=== PATIENT | female | born 1935 | race Caucasian/White ===

== ENCOUNTER 2017-06-23 16:59 | Inpatient (IN) | payer MEDICARE ==
[2017-06-23] VITALS (7 sets, daily range): BP systolic 111–160
[~2017-06-23] VITALS: Ht 154.9 cm; Wt 67.1 kg
[~2017-06-23 16:59] MED LIST: ATEN-41; CLOP75TA2; LETR2.5T3; LOSA25TA3; NAPH,MB-DB/K PH,MBDB 250 MG TAB PO ONE; OMEP20TA56; SIMV10TA6
--- NOTE | 2017-06-23 16:59 | NUR ---
Pt placed in bed 4 by [facility]
--- NOTE | 2017-06-23 17:02 | NUR ---
Pt BIB BLS c/o gradual onset 10/ L hip pain since April. Pt states she has been increasingly weak and has not been able to sleep comfortably in bed, so pt has been sleeping in an arm chair; states it was too painful to stand up from chair. Pt unable to lift L leg without pain, cap refill <3, + sensation to bilateral lower extremities. No other injuries/complaints per pt/noted. Will continue to monitor.
--- NOTE | 2017-06-23 17:18 | NUR ---
ER Dr. Mullins at bedside examining patient.
[2017-06-23] MEDS ORDERED: DILTIAZEM HCL 25 MG/5 ML VIAL IVP ONE ×4 (17:30→18:30)
[2017-06-23] MEDS ORDERED: MORPHINE 4 MG/ML INJ. SYRINGE IVP ONE (17:30)
[2017-06-23] MEDS ORDERED: ASPIRIN 81 MG TAB.CHEW PO ONE (17:30)
--- NOTE | 2017-06-23 17:40 | NUR ---
Medication administered. Pt tolerated well. No adverse reactions noted.
--- NOTE | 2017-06-23 17:42 | NUR ---
Radiology at bedside
[2017-06-23 17:47] LABS: MEAN CORPUSCULAR HEMOGLOBIN 33 pg (27-31); MEAN CORPUSCULAR HGB CONC 34 % (32-36)
--- NOTE | 2017-06-23 17:57 | NUR ---
Medication administered. Pt tolerated well.
--- NOTE | 2017-06-23 18:09 | NUR ---
Medication administered. Pt tolerated well. Kenji left to corn picker list of medications. Would like to be notified of any changes to pt's condition
--- NOTE | 2017-06-23 18:10 | NUR ---
Laboratory at bedside
--- NOTE | 2017-06-23 18:13 | NUR ---
Pt moved to bed 2
[2017-06-23 18:26] LABS: MEAN CORPUSCULAR VOLUME 96 fL (79.0-98.0); MONOCYTES # (AUTO) 1.1 K/uL (0.0-1.0)
[2017-06-23 18:30] LABS: BASOPHILS # (AUTO) 0.6 K/uL (0.0-0.2); BASOPHILS % (AUTO) 2.7 % (0.0-2.0); HEMATOCRIT 41.7 % (36-48); HEMOGLOBIN 14.2 g/dL (12.0-16.0); LYMPHOCYTES # (AUTO) 3.5 K/uL (1.0-5.5); LYMPHOCYTES % (AUTO) 17.1 % (20.5-51.5); MONOCYTES % (AUTO) 5.5 % (1.7-9.3); NEUTROPHILS # (AUTO) 15.5 K/uL (1.8-7.7); NEUTROPHILS % (AUTO) 74.7 % (40.0-70.0); PLATELET COUNT (AUTO) 196 K/uL (130-430); RED BLOOD CELL COUNT(AUTO) 4.36 MIL/uL (4.2-6.2); RED CELL DISTRIBUTION WIDTH 12.8 % (9.0-15.0); WHITE BLOOD COUNT (AUTO) 20.7 K/uL (4.8-10.8)
[2017-06-23 18:43] LABS: INR 1.1 (0.8-1.2); PROTHROMBIN TIME 10.8 SECS (9.5-12.5)
[2017-06-23 18:44] LABS: ANION GAP 15 (5-15); CALCIUM 9.2 mg/dL (8.4-11.0); CHLORIDE 96 mmol/L (98-107); CREATININE 1.17 mg/dL (0.55-1.30); GLUCOSE 135 mg/dL (70-99); POTASSIUM 3.9 mmol/L (3.5-5.1); SODIUM SERUM 132 mmol/L (136-145); UREA NITROGEN, BLOOD 20 mg/dL (8-21)
[2017-06-23] MEDS ORDERED: DILTIAZEM HCL 125 MG/25 ML VIAL IV ONE (18:45)
[2017-06-23] MEDS ORDERED: cefTRIAXone 1 GM in D5W 50 ML IV ONE (18:45)
[2017-06-23] MEDS ORDERED: DILTIAZEM HCL 125 MG in D5W 100 ML IV ONE (18:45)
[2017-06-23 18:49] LABS: ALANINE AMINOTRANSFERASE 21 U/L (12-78); ALBUMIN 3.9 g/dL (3.4-4.8); ASPARTATE AMINOTRANSFERASE 22 U/L (10-37); TOTAL BILIRUBIN 1.3 mg/dL (0.0-1.0)
[2017-06-23 19:05] LABS: BILIRUBIN,URINE 1+ (NEGATIVE); BLOOD, URINE TRACE (NEGATIVE); CLARITY/URINE CLEAR (CLEAR); COLOR,URINE YELLOW (YELLOW); GLUCOSE,URINE NEGATIVE (NEGATIVE); KETONES,URINE TRACE (NEGATIVE); LEUKOCYTE ESTERASE ,URINE NEGATIVE (NEGATIVE); NITRITE, URINE NEGATIVE (NEGATIVE); PH,URINE 5.5 (5.0-8.0); PROTEIN URINE 2+ (NEGATIVE); UROBILINOGEN,URINE 0.2 (0.2-1.0)
[2017-06-23 19:17] LABS: BACTERIA,URINE FEW /HPF (None Seen); MUCUS,URINE 1+ /LPF (None Seen); RBC,URINE 0-3 /HPF (0-3)
--- NOTE | 2017-06-23 19:22 | NUR ---
Cardizem titrated up to 10mg/hr,HR 172
[2017-06-23] MEDS ORDERED: cefTRIAXone 1 GM VIAL ONE (19:24)
--- NOTE | 2017-06-23 19:40 | NUR ---
Patient will be admitted to [facility]. Admitted to ICU. Will go to room 1. Summary report printed. Report will be given at bedside.
[2017-06-23] MEDS ORDERED: ERGO500043 PO (20:06)
[2017-06-23] MEDS ORDERED: METO-442 PO (20:15)
[2017-06-23] MEDS ORDERED: VIT1CAPS27 PO (20:15)
[2017-06-23] MEDS ORDERED: ASPI-1077 PO (20:15)
[2017-06-23] MEDS ORDERED: LOSA50TA3 PO (20:21)
[2017-06-23] MEDS ORDERED: LEVO25TA7 PO (20:21)
[2017-06-23] MEDS ORDERED: SIMV20TA2 PO (20:21)
[2017-06-23] MEDS ORDERED: HYDR-1189 PO (20:21)
[2017-06-23] MEDS ORDERED: ONDANSETRON HCL 4 MG/2 ML VIAL IVP PRN (20:45)
[2017-06-23] MEDS ORDERED: ACETAMINOPHEN 325 MG TABLET PO PRN (20:45)
[2017-06-23] MEDS ORDERED: MAGNESIUM SULFATE 50 ML IV PRN (20:45)
[2017-06-23] MEDS ORDERED: DOCUSATE SODIUM 100 MG CAPSULE PO PRN (20:45)
[2017-06-23] MEDS ORDERED: POTASSIUM CHLORIDE 20 MEQ TAB.PRT.SR PO PRN (20:45)
[2017-06-23] MEDS ORDERED: ZOLPIDEM TARTRATE 5 MG TABLET PO PRN (20:45)
[2017-06-23] MEDS ORDERED: LORazepam 2 MG/ML VIAL IVP PRN (20:45)
[2017-06-23] MEDS ORDERED: MORPHINE 4 MG/ML INJ. SYRINGE IVP PRN ×2 (20:45)
[2017-06-23] MEDS ORDERED: MUPIROCIN 2% TOPICAL OINTMENT 22 GM NS PRN (20:45)
[2017-06-23] MEDS ORDERED: NACL 0.9% 1,000 ML IV ONE ×2 (21:00→22:00)
[2017-06-23] MEDS: ENOXAPARIN SODIUM 60 MG/0.6 ML SYRINGE SUBCUT SCH (21:00)
--- NOTE | 2017-06-23 21:45 | NUR ---
PAGE CALLED FOR DR. BROOKE. SPOKE TO DR. BROOKE, DIALED [phone].
--- NOTE | 2017-06-23 21:47 | NUR ---
CONSULTATION CALLED REASON FOR CONSULT: SEPSIS WAS CONSULT CALLED? Y PERSON NOTIFIED: MAIA PHYSICIAN CONSULTED: EMMETT SEPULVEDA PHYSICIAN NUMBER: [phone] PHYSICIAN SPECIALTY: INFECTIOUS DISEASE ORDERING PHYSICIAN: DR. BROOKE [facility]
[2017-06-23] MEDS: METOPROLOL TARTRATE 50 MG TABLET PO SCH (21:52)
[2017-06-23] MEDS: AMIODARONE HCL 200 MG TABLET PO SCH (21:53)
[2017-06-23] MEDS ORDERED: cefTRIAXone 1 GM IVPB PREMIX 50 ML IV ONE (22:25)
[2017-06-23] MEDS: NACL 0.9% 1,000 ML IV SCH (22:26)
--- NOTE | 2017-06-23 22:34 | NUR ---
HEART RATE CONVERSION OBSERVED RHYTHM CONVERSION TO SINUS RHYTHM WITH PAC'S ON PRIVATE DUTY NURSE, CURRENTLY RATE OF 77
[2017-06-23] MEDS ORDERED: KCL 40 mEq in 100 mL (PREMIX) 100 ML IV ONE (23:45)
[2017-06-23] MEDS ORDERED: NAPH,MB-DB/K PH,MBDB 250 MG TAB PO ONE (23:45)
[2017-06-24] VITALS (24 sets, daily range): BP systolic 95–164
--- NOTE | 2017-06-24 01:53 | NUR ---
LEG DRESSINGS REMOVED COMPRESSION DRESSINGS PLACED BY JARVIS MERCER ON TUESDAY 06/20 REMOVED FOR SKIN INSPECTION. NO SIGNIFICANT WOUNDS NOTED, LEGS APPEAR DRY AND FLAKY.
[2017-06-24] MEDS ORDERED: VANCOMYCIN HCL 1 GM/NS PREMIX 250 ML IV SCH (03:30)
[2017-06-24] MEDS: AMIODARONE HCL 200 MG TABLET PO SCH ×2 (05:13→20:56)
[2017-06-24] MEDS ORDERED: DILTIAZEM HCL 125 MG in D5W 100 ML IV SCH (05:30)
[2017-06-24] MEDS ORDERED: DILTIAZEM HCL 25 MG/5 ML VIAL ONE (06:00)
[2017-06-24] MEDS: NACL 0.9% 1,000 ML IV SCH ×3 (06:10→23:44)
[2017-06-24 06:56] LABS: BASOPHILS # (AUTO) 0.8 K/uL (0.0-0.2); BASOPHILS % (AUTO) 3.9 % (0.0-2.0); HEMATOCRIT 33.6 % (36-48); HEMOGLOBIN 11.7 g/dL (12.0-16.0); LYMPHOCYTES # (AUTO) 4.8 K/uL (1.0-5.5); LYMPHOCYTES % (AUTO) 22.3 % (20.5-51.5); MEAN CORPUSCULAR HEMOGLOBIN 34 pg (27-31); MEAN CORPUSCULAR HGB CONC 35 % (32-36); MEAN CORPUSCULAR VOLUME 97 fL (79.0-98.0); MONOCYTES # (AUTO) 1.7 K/uL (0.0-1.0); NEUTROPHILS # (AUTO) 14.2 K/uL (1.8-7.7); NEUTROPHILS % (AUTO) 65.8 % (40.0-70.0); PLATELET COUNT (AUTO) 150 K/uL (130-430); RED BLOOD CELL COUNT(AUTO) 3.48 MIL/uL (4.2-6.2); RED CELL DISTRIBUTION WIDTH 12.8 % (9.0-15.0); WHITE BLOOD COUNT (AUTO) 21.5 K/uL (4.8-10.8)
--- NOTE | 2017-06-24 07:20 | NUR ---
CLOSING NOTE PT IN BED, RESTING. NO SIGNS OF DISTRESS, DENIES CURRENT PAIN OR DISCOMFORT. CARDIAC RHYTHM REMAINS STABLE SINUS RHYTHM. CARE TO RESUME THROUGH SHIFT.
[2017-06-24 07:21] LABS: ANION GAP 11 (5-15); CALCIUM 7.8 mg/dL (8.4-11.0); CHLORIDE 101 mmol/L (98-107); GLUCOSE 124 mg/dL (70-99); POTASSIUM 4.1 mmol/L (3.5-5.1); SODIUM SERUM 131 mmol/L (136-145); UREA NITROGEN, BLOOD 26 mg/dL (8-21)
[2017-06-24 07:22] LABS: ALANINE AMINOTRANSFERASE 14 U/L (12-78); ALBUMIN 2.6 g/dL (3.4-4.8); ASPARTATE AMINOTRANSFERASE 19 U/L (10-37); CHOLESTEROL 79 mg/dL (<200); CREATININE 0.89 mg/dL (0.55-1.30); TOTAL BILIRUBIN 1.1 mg/dL (0.0-1.0); TRIGLYCERIDES 46 mg/dL (30-150)
[2017-06-24 07:23] LABS: HDL CHOLESTEROL 61 mg/dL (>55); LDL CHOLESTEROL < 6 mg/dL (<100); THYROID STIMULATING HORMONE 0.37 uIu/mL (0.34-4.82)
--- NOTE | 2017-06-24 07:30 | NUR ---
AM ASSESSMENT. PT ALERT, ABLE TO VERBALIZE BASIC NEEDS, DENIES PAIN, SKIN WARM TO TOUCH TO BOTH LEGS AND ARE SWOLLEN, DRY SCABS DOT- LIKE SHAPE SEEN, REPOSITIONED PT IN BED, DR BROOKE CAME IN AND EXAMINED PT. MADE AWARE OF LOW URINE OUTPUT, TO DO BLADDER SCAN.
--- NOTE | 2017-06-24 09:30 | NUR ---
HYGIENE. PT HAD USED A BEDPAN, AND HAD A BOWEL MOVEMENT. GOOD PERINEAL CARE RENDERED, BED BATH WITH CHG WIPES USED, LINEN CHANGED NEEDED.
[2017-06-24] MEDS: METOPROLOL TARTRATE 50 MG TABLET PO SCH ×2 (09:33→20:56)
[2017-06-24] MEDS: ENOXAPARIN SODIUM 60 MG/0.6 ML SYRINGE SUBCUT SCH ×2 (09:33→20:55)
--- NOTE | 2017-06-24 10:40 | NUR ---
TEST. PT HAVING AN ECHOCARDIOGRAM AT THIS TIME.
--- NOTE | 2017-06-24 11:15 | NUR ---
PHONE CALL. PAGED DR BROOKE FOR PT'S LOW URINE OUTPUT. BLADDER SCAN WAS DONE. URINE UNDETECTED.
[2017-06-24] MEDS: HYDROcodone/ACETAMIN 5-325 MG TAB (NORCO/ VICODIN) PO PRN ×2 (11:38→23:45)
--- NOTE | 2017-06-24 11:38 | NUR ---
PAIN. PT COMPLAINED OF BACK PAIN, 6/10 SCALE, OFFERED MORPHINE IV, PT DECLINED, STATED "THAT DID NOT WORK", PT TOOK 1 TABLET NORCO ORDERED.
[2017-06-24] MEDS: VANCOMYCIN HCL 1,000 MG in NS 250 ML IV SCH (11:39)
--- NOTE | 2017-06-24 11:47 | NUR ---
LOW URINE OUTPUT. DR BROOKE CALLED BACK. NOTIFIED THAT PT'S URINE OUTPUT IS ONLY 45 ML SINCE THIS SHIFT STARTED, BLADDER SCAN WAS DONE AND NO URINE DETECTED. STATED THAT PT IS SEPTIC, WILL CONTINUE TO MONITOR.
--- NOTE | 2017-06-24 12:15 | NUR ---
RELIEF. PT VERBALIZED GOOD RELIEF OF PAIN.
[2017-06-24] MEDS ORDERED: VORICONAZOLE 200 MG in NS 100 ML IV SCH (16:00)
--- NOTE | 2017-06-24 16:00 | NUR ---
FAMILY. PT VISITED BY HER SON AND DAUGHTER IN LAW, HAVING GOOD CONVERSATION.
[2017-06-24] MEDS: AMPICILLIN SODIUM/SULBACTAM NA 1.5 GM in NS 50 ML IV SCH ×2 (17:54→23:44)
--- NOTE | 2017-06-24 18:15 | NUR ---
DIET. AT BEDSIDE, TRAY SERVED FOR DINNER, NEEDS ASSESSED AND ATTENDED.
[2017-06-24] MEDS ORDERED: cefTRIAXone 1 GM in D5W 50 ML IV SCH (20:00)
--- NOTE | 2017-06-24 20:00 | NUR ---
PATIENT awake alert sitting up in bed on NC @ 4 LPM , chest movement symmetrical skin dry warm , assist for position change on schedule off loading with pillows comfort measures implemented also helpful , DISCOLORATION with old dry scabs is noted to both lower legs and redness .
--- NOTE | 2017-06-24 20:35 | NUR ---
JONES CATHETER FOR URINE PATENT SCANTY OUT PUT OF YELLOW URINE TO BSDB , PATIENT IS ALERT & ON CARDIAC PO DIET , SIPS OF WATER OFFERED & TOLERATED .
--- NOTE | 2017-06-24 21:09 | NUR ---
New ORDERS to Transfer patient to TELEMETRY per DR ARNOLDO MERCER .
--- NOTE | 2017-06-24 23:27 | NUR ---
SBAR REPORT GIVEN TO Farideh GARCIA patient transfer to room 122 A , personal belongings document completed .
--- NOTE | 2017-06-24 23:30 | NUR ---
TRANSFER OF CARE Received patient from LITERACY EDUCATION PROFESSOR, Luis Alberto Owen Patient is awake/alert/oriented x 4 No acute distress at this time, she is watching her IPAD. 141/75 82 17 98% (4LNC) 98.1 and complains of 6/10 pain to lower extremity bilaterally. IV site noted to right hand 24G, infusing NS @ 125ml/hr. Secondary IV site to left hand 22g, saline locked. Verified patency with good blood return/flush. Brothers catheter noted with approx 100ml of jyoti urine. Fall precautions noted. Discussed with patient to utilize call light before attempting to get out of bed. She verbalizes understanding. Ensured bed alarm is activated. Personal belongings list checked and updated. She does not need anything else at this time. Introduced myself, discussed plan of care and updated whiteboard. Bed to lowest position, 2 upper side rails raised bilaterally, call light within reach, bed alarm activated. Will continue to monitor patient.
--- NOTE | 2017-06-24 23:45 | NUR ---
PAIN MEDICATION Patient complains of 6/10 lower leg pain bilaterally. Administered [place]sworth 5mg/325mg as ordered by physician. Will follow up with patient to ensure effective pain management.
--- NOTE | 2017-06-25 00:55 | NUR ---
CRITICAL LAB RESULT Received call from [employer], Procalcitonin lvl 2.9 Critical lab result read back and verified. Will page distribution operation supervisor ID to advise.
--- NOTE | 2017-06-25 01:01 | NUR ---
Paged Dr. Carty (ID) regarding Critical Lab results.
--- NOTE | 2017-06-25 01:13 | NUR ---
Received call back from Dr. Carty Advised of critical lab results. No new orders received. He says if procalcitonin is re-checked and elevated there is no need to call back to advise, it will be high.
--- NOTE | 2017-06-25 01:27 | NUR ---
ROUNDS Patient is comfortably resting, eyes closed and no acute distress noted. O2 NC is applied/flowing. IV site is clean/dry/intact and NS @ 125ml/hr infusing with no signs of infiltration. Bed to lowest position, bed alarm activated, 2 upper side rails raised bilaterally. Will continue to monitor patient.
--- NOTE | 2017-06-25 03:30 | NUR ---
ROUNDS Patient is resting comfortably with eyes closed, but is easily arousable to light stimulation. Equal rise and fall of chest with respirations @ 19/min. IV site clean/dry/intact with no signs of redness or infiltration. NS infusing @ 125ml/hr. Brothers properly draining. Bed to lowest position, 2 upper side rails raised bilaterally, call light within reach, bed alarm activated. Will continue to monitor patient.
--- NOTE | 2017-06-25 05:30 | NUR ---
ROUNDS Patient is awake/alert/oriented, watching TV. Equal rise and fall of chest with respirations @ 16/min. IV site clean/dry/intact with no signs of redness or infiltration. NS infusing @ 125ml/hr. Brothers properly draining. Bed to lowest position, 2 upper side rails raised bilaterally, call light within reach, bed alarm activated. Will continue to monitor patient.
[2017-06-25] MEDS: AMPICILLIN SODIUM/SULBACTAM NA 1.5 GM in NS 50 ML IV SCH ×2 (05:35→13:29)
--- NOTE | 2017-06-25 06:51 | NUR ---
CLOSING NOTE All needs, expectations, interventions met by noc shift RN. Fall precautions upheld throughout shift. Will endorse care and bedside SBAR report to oncoming dayshift RN.
[2017-06-25 06:56] LABS: ANION GAP 9 (5-15); CALCIUM 8.2 mg/dL (8.4-11.0); CHLORIDE 104 mmol/L (98-107); CREATININE 0.99 mg/dL (0.55-1.30); GLUCOSE 94 mg/dL (70-99); POTASSIUM 3.4 mmol/L (3.5-5.1); SODIUM SERUM 132 mmol/L (136-145); UREA NITROGEN, BLOOD 21 mg/dL (8-21)
[2017-06-25] MEDS: NACL 0.9% 1,000 ML IV SCH (07:00)
--- NOTE | 2017-06-25 07:30 | NUR ---
OPENING NOTE: MORNING REPORT WAS TAKEN FROM SUCTION WORKER NURSE. PATIENT IS AWAKE AND ALERT WITH NO SIGNS OF DISTRESS. VITALS WERE TAKEN AND MORNING ASSESSMENT WAS DONE. PATIENT IS NOT COMPLAINING OF SHORTNESS OF BREATH. PATIENT IS ON 4L NC. PATIENT HAS A COUGH BUT SAID SHE IS NOT SPITTING ANYTHING OUT. PATIENT'S BELLY BUTTON IS STICKING OUT AND PATIENT SAID IT IS FROM HER COUGH. PATIENT'S LEGS ARE SWOLLEN AND FLAKEY. PATIENT PEDAL PULSES ARE PRESENT AND CAN FEEL TOUCH. PATIENT'S RIGHT HAND IS SWOLLEN. CHANGED FLUIDS TO OTHER HAND. JONES IS HANGING TO GRAVITY. BED ALARM IS ON AND CALL LIGHT IS IN REACH. WILL CONTINUE TO MONITOR.
[2017-06-25 08:02] VITALS: BP_SYST 160
[2017-06-25] MEDS: METOPROLOL TARTRATE 50 MG TABLET PO SCH (09:22)
[2017-06-25] MEDS: ENOXAPARIN SODIUM 60 MG/0.6 ML SYRINGE SUBCUT SCH (09:22)
[2017-06-25] MEDS: AMIODARONE HCL 200 MG TABLET PO SCH (09:23)
[2017-06-25] MEDS: HYDROcodone/ACETAMIN 5-325 MG TAB (NORCO/ VICODIN) PO PRN (09:23)
--- NOTE | 2017-06-25 09:35 | NUR ---
NOTE: GAVE PATIENT MORNING MEDICATIONS. HAD TO CUT POTASSIUM PILL BECAUSE IT WAS TOO LARGE TO SWALLOW. PATIENT WAS COMPLAINING OF PAIN IN BACK SO GAVE PAIN MEDICATION. WILL CONTINUE TO MONITOR.
[2017-06-25] MEDS: VANCOMYCIN HCL 1,000 MG in NS 250 ML IV SCH (11:05)
--- NOTE | 2017-06-25 11:07 | NUR ---
Case mgt: Rec'd order for transfer to [facility]--attempted x2 to fax order to [facility] fax#[phone] but fax not going through. I called [facility] at [phone] and asked about fax#--they are having problems with that fax# and gave me fax#[phone]--I let them know I have transfer order for pt--that 2nd fax# is busy also--will attempt faxing of order again-transfer packet made-xray cd included--nurse Candice stafford aware-MIKE RN
[2017-06-25 11:14] LABS: BASOPHILS # (AUTO) 0.1 K/uL (0.0-0.2); BASOPHILS % (AUTO) 1.2 % (0.0-2.0); EOSINOPHILS # (AUTO) 0.2 K/uL (0.0-0.4); EOSINOPHILS % (AUTO) 1.3 % (0.0-4.0); HEMATOCRIT 33.4 % (36-48); HEMOGLOBIN 11.1 g/dL (12.0-16.0); LYMPHOCYTES # (AUTO) 3.3 K/uL (1.0-5.5); LYMPHOCYTES % (AUTO) 27.1 % (20.5-51.5); MEAN CORPUSCULAR HEMOGLOBIN 32 pg (27-31); MEAN CORPUSCULAR HGB CONC 33 % (32-36); MEAN CORPUSCULAR VOLUME 98 fL (79.0-98.0); NEUTROPHILS # (AUTO) 7.6 K/uL (1.8-7.7); NEUTROPHILS % (AUTO) 62.4 % (40.0-70.0); PLATELET COUNT (AUTO) 142 K/uL (130-430); RED BLOOD CELL COUNT(AUTO) 3.42 MIL/uL (4.2-6.2)
[2017-06-25 11:15] LABS: WHITE BLOOD COUNT (AUTO) 12.2 K/uL (4.8-10.8)
[2017-06-25 12:05] VITALS: BP_SYST 109
--- NOTE | 2017-06-25 13:20 | NUR ---
NOTE: SEND ANTIBIOTICS GIVEN. PATIENT HAS NC ON. PATIENT ONLY COMPLAINS OF SHORTNESS OF BREATH WHEN TALKING A LOT. PATIENT IS NOT ASKING FOR PAIN MEDICATIONS AT MOMENT. IS AT BEDSIDE. WILL CONTINUE TO MONITOR.
--- NOTE | 2017-06-25 14:00 | NUR ---
Case mgt: Multiple fax attempts to [facility] fax#[phone] and their temp fax#[phone]--approx 13 attempts--fax finally went through at [phone]--I had spoken with Dulce at [facility] [phone] earlier and she is aware of transfer order and attempts to fax transfer order--she was going to reach out to pt's nurse Candice--MIKE GARCIA
--- NOTE | 2017-06-25 15:10 | NUR ---
NOTE: LAB CALLED TO REPORT TROPONIN OF 0.126. . IS AWARE THAT TROPONIN IS TRENDING DOWN.
[2017-06-25] MEDS ORDERED: cloNIDine HCL 0.1 MG TABLET PO ONE (16:45)
[2017-06-25 16:47] VITALS: BP_SYST 179
[2017-06-25] MEDS ORDERED: cloNIDine HCL 0.2 MG TABLET ONE (16:50)
--- NOTE | 2017-06-25 16:52 | NUR ---
NOTE: PATIENT HAD ELEVATED BLOOD PRESSURE OF 173/81. PAGED DR. BROOKE AND ORDERED AMI. GAVE PATIENT MEDICATION WILL RECHECK BLOOD PRESSURE.
[2017-06-25 16:53] VITALS: BP_SYST 160
--- NOTE | 2017-06-25 17:17 | NUR ---
NOTE: CALLED AND GAVE REPORT TO NURSE DEVIN GARCIA AT [facility].
--- NOTE | 2017-06-25 18:23 | NUR ---
PT TRANSFERRED Transfer packet with Transfer Orders and Medication Reconciliation form given to EMT with report. Exit care provided. [facility] ID band removed, replaced with ID band with pt's name and . IV catheter in left hand intact with no signs of infiltration. All belongings sent with patient. Exit Care provided. Patient verbalized understanding. Patient left floor via gurney escorted by EMT in no distress.
== END 2017-06-25 18:27 | disposition short-term general hospital (02) | DRG 871 ==
LOC: SED 16:59 → SIC 19:28 → STU 06-24 23:12
PROVIDERS: ADMIT General Practice; ATTEND General Practice
DX: A41.9 Sepsis, unspecified organism (principal); I21.A1 Myocardial infarction type 2; E87.2 Acidosis; E87.1 Hypo-osmolality and hyponatremia; L03.115 Cellulitis of right lower limb; L03.116 Cellulitis of left lower limb; N39.0 Urinary tract infection, site not specified; I48.91 Unspecified atrial fibrillation; E78.5 Hyperlipidemia, unspecified; G89.4 Chronic pain syndrome; M54.9 Dorsalgia, unspecified; I10 Essential (primary) hypertension; I25.10 Atherosclerotic heart disease of native coronary artery without angina pectoris; I87.2 Venous insufficiency (chronic) (peripheral); M16.0 Bilateral primary osteoarthritis of hip; Z85.3 Personal history of malignant neoplasm of breast; Z90.11 Acquired absence of right breast and nipple; Z87.81 Personal history of (healed) traumatic fracture; Z90.89 Acquired absence of other organs; Z88.8 Allergy status to other drugs, medicaments and biological substances; Z79.899 Other long term (current) drug therapy; Z79.82 Long term (current) use of aspirin; Z79.02 Long term (current) use of antithrombotics/antiplatelets; Z86.73 Personal history of transient ischemic attack (TIA), and cerebral infarction without residual deficits
CPT/HCPCS: 36415; 71045; 73502; 80048; 80053; 80061; 81000-TC; 83605; 83735-TC; 83880; 84443-TC; 84484; 85025; 85610-TC; 87040-TC; 87081; 87305; 93005; 93306; 96365; 96375; 96376; 99291; J0295; J0696; J1650; J2270; J3370; J3465; J3490; J7030; J7050; J7060